=== PATIENT | female | born 2000 | race Caucasian/White ===

== ENCOUNTER 2020-09-06 09:23 | Emergency (ER) | payer OTHER ==
[2020-09-06 10:47] LABS: BASOPHIL 0.5 % (0-2); EOSINOPHIL 1.4 % (0-5); HCT 42.6 % (37.0-47.0); LYMPHOCYTE 17.9 % (15-48); MCH 28.9 pg (25.0-31.0); MCHC 32.9 g/dL (32.0-36.0); MONOCYTE 8.6 % (0-12); NEUTROPHIL 71.3 % (41-80); NRBC 0; PLT 189 K/uL (150-400); RBC 4.84 M/uL (4.20-5.40); WBC 6.3 K/uL (4.0-10.5)
[2020-09-06 11:04] LABS: BILIRUBIN - TOTAL 0.4 mg/dL (0.2-1.0); CREATININE 0.63 mg/dL (0.51-0.95); POTASSIUM 3.9 mmol/L (3.5-5.1)
[2020-09-06 11:12] LABS: BILIRUBIN NEGATIVE (NEGATIVE); BLOOD NEGATIVE Ery/uL (NEGATIVE); CLARITY CLEAR (CLEAR); COLOR YELLOW (YELLOW); GLUCOSE (U) NORMAL (NORMAL); LEUKOCYTES TRACE Leu/uL (NEGATIVE); NITRITE NEGATIVE (NEGATIVE); PROTEIN NEGATIVE (NEGATIVE); UROBILINOGEN 0.2 mg/dL (0.2-1.0)
[2020-09-06 11:21] LABS: BACTERIA 2+
== END 2020-09-06 11:17 | disposition left against medical advice (07) ==
LOC: FER 09:23
PROVIDERS: Emergency Medicine
DX: R10.9 Unspecified abdominal pain (principal); R06.02 Shortness of breath; F17.210 Nicotine dependence, cigarettes, uncomplicated; Z53.8 Procedure and treatment not carried out for other reasons; Z88.8 Allergy status to other drugs, medicaments and biological substances
CPT/HCPCS: 36415; 80053; 81001; 85025; 99284